=== PATIENT | female | born 1930 | race Caucasian/White ===

== ENCOUNTER → 2017-05-10 | Outpatient (CLI) | payer MEDICARE ==
[~2017-05-10] MED LIST: ALEN70TA43 PO; CALC-515 PO; CALC500T6 PO; CHOL10005 PO; CHOL200074 PO; LEVO25TA57 PO; LEVO50TA86 PO; LOSA25TA50 PO; LOVA10TA63 PO; MULT-865 PO; MULT1TAB54 PO; PRE1 PO; VITA400T7 PO; WHEA1POW10 PO; [UNRECOGNIZED DRUG - CODE] PO
[2017-05-10 08:37] LABS: PLATELET COUNT, AUTOMATED 220 K/uL (150-450)
[2017-05-10 11:56] LABS: LDL CHOLESTEROL 137 mg/dl
== END ==
LOC: LAB 08:15
PROVIDERS: ATTEND Nurse Practitioner Family
DX: E05.00 Thyrotoxicosis with diffuse goiter without thyrotoxic crisis or storm (principal); E78.5 Hyperlipidemia, unspecified; E11.9 Type 2 diabetes mellitus without complications; E03.9 Hypothyroidism, unspecified
CPT/HCPCS: 36415; 82040; 82247; 82310; 82374; 82435; 82465; 82565; 82947; 83718; 84075; 84132; 84155; 84295; 84439; 84443; 84450; 84460; 84478; 84481; 84520; 85025

== ENCOUNTER → 2017-11-08 | Outpatient (CLI) | payer MEDICARE ==
[2017-11-08 08:23] LABS: PLATELET COUNT, AUTOMATED 235 K/uL (150-450)
== END ==
LOC: LAB 08:02
PROVIDERS: ATTEND Nurse Practitioner Family
DX: E03.9 Hypothyroidism, unspecified (principal); E55.9 Vitamin D deficiency, unspecified; M81.0 Age-related osteoporosis without current pathological fracture; I10 Essential (primary) hypertension
CPT/HCPCS: 36415; 82040; 82247; 82306; 82310; 82374; 82435; 82565; 82947; 84075; 84132; 84155; 84295; 84443; 84450; 84460; 84520; 85025

== ENCOUNTER → 2018-01-20 | Outpatient (CLI) | payer MEDICARE ==
[~2018-01-20] MED LIST changes: -LOSA25TA50 PO; +LOSA25TA52 PO
--- NOTE | 2018-01-20 15:02 | RADIOLOGY IMAGING REPORT ---
FACILITY: [facility] PATIENT NAME: Martha Roblero : 1930 MR: [id number] V: [id number] EXAM DATE: [id number] ORDERING PHYSICIAN: JENNA WHITTINGTON TECHNOLOGIST: Location: [facility] Patient: Martha Roblero : 1930 Visit/Account:[id number] Date of Sevice: 01/20/2018 DEXA Scan Clinical history: Osteoporosis. Comparison: DEXA scan from 01/16/2017. LUMBAR SPINE: The bone mineral density (BMD) measured from L1-L4 correlates with a Z-score of -0.3 and a T-score of -2.7 which is osteoporosis as defined by the World Health Organization. The corresponding risk of f racture in the lumbar spine is 6-8 times greater compared with a young adult reference population. T his value has increased by 6.6 percent since the prior study. More than 5 percent change is consider ed significant. HIP: Femoral Neck: Bone mineral density (BMD) measured in the LEFT femoral neck region correlates with a Z-score 0.1 and a T-score of -2.8 which is osteoporosis as defined by the World Health Organization. The correspond ing risk of fracture in the hip is 6-8 times greater compared to a young adult reference population. Bone mineral density (BMD) measured in the Femoral Neck region measures 0.655 g/cm2. Total Hip: Bone mineral density (BMD) measured in the LEFT total hip region correlates with a Z-score -0.5 and a T-score of -3.3 which is osteoporosis as defined by the World Health Organization. The correspondin g risk of fracture in the hip is 8-12 times greater compared to a young adult reference population. T his value has increased by 3.3 percent since the prior study. More than 5 percent change is consider ed significant. IMPRESSION: 1. Lumbar spine: Osteoporosis. There has been a significant increase in the bone mineral density si nce the previous exam. 2. Left femoral neck and total hip: Osteoporosis. There has been no significant change in the bone mineral density of the total hip since the previous exam. The next DEXA scan of this patient should include the following sites: L1-L4 and the left hip. FRAX WHO Fracture Risk Assessment Tool link: <http://www.shef.ac.uk/FRAX/tool.jsp?[email or web address]> PLEASE NOTE: 1) The World Health Organization defines low BMD as follows: T-score Normal > -1 Osteopenia < -1 and > -2.5 Osteoporosis < -2.5 without fractures Established osteoporosis < -2.5 with fractures 2) In general, you may wish to consider: Diagnosis Treatment Follow-up DEXA Normal BMD Prevention 2-3 years Osteopenia Prevention/therapy 1-2 years Osteoporosis Therapy Yearly 3) Fracture risk estimated from the T-score is more accurate for vertebral fractures (often spontane ous) than for hip fractures. Report Dictated By: Cristine Jurado MD at 01/20/2018 2:37 PM Report E-Signed By: Cristine Jurado MD at 01/20/2018 2:58 PM PATRICAN:ASYA
== END ==
LOC: RAD 06:57
PROVIDERS: ATTEND Nurse Practitioner Family
DX: M81.0 Age-related osteoporosis without current pathological fracture (principal)
CPT/HCPCS: 77080

== ENCOUNTER → 2018-05-15 | Outpatient (CLI) | payer MEDICARE ==
[~2018-05-15] MED LIST changes: -LOSA25TA52 PO; +LOSA25TA57 PO
[2018-05-15 08:41] LABS: PLATELET COUNT, AUTOMATED 235 K/uL (150-450)
[2018-05-15 09:30] LABS: LDL CHOLESTEROL 139 mg/dl
== END ==
LOC: LAB 08:27
PROVIDERS: ATTEND Nurse Practitioner Family
DX: I10 Essential (primary) hypertension (principal); E78.5 Hyperlipidemia, unspecified
CPT/HCPCS: 36415; 82040; 82247; 82310; 82374; 82435; 82465; 82565; 82947; 83718; 84075; 84132; 84155; 84295; 84443; 84450; 84460; 84478; 84520; 85025

== ENCOUNTER → 2018-11-10 | Outpatient (CLI) | payer MEDICARE ==
[~2018-11-10] MED LIST changes: +LOSA100T75 PO; +LOSA50TA80 PO
[2018-11-10 08:54] LABS: PLATELET COUNT, AUTOMATED 219 K/uL (150-450)
[2018-11-10 09:31] LABS: LDL CHOLESTEROL 137 mg/dl
== END ==
LOC: LAB 08:26
PROVIDERS: ATTEND Nurse Practitioner Family
DX: E78.5 Hyperlipidemia, unspecified (principal); I10 Essential (primary) hypertension
CPT/HCPCS: 36415; 82040; 82247; 82310; 82374; 82435; 82465; 82565; 82947; 83718; 84075; 84132; 84155; 84295; 84443; 84450; 84460; 84478; 84520; 85025